=== PATIENT | female | born 1935 | race Caucasian/White ===

== ENCOUNTER 2017-01-04 14:17 | Inpatient (IN) | payer MEDICARE ==
[~2017-01-04] VITALS: Ht 157.5 cm; Wt 70.3 kg
[~2017-01-04 14:17] MED LIST: ASPIRIN81 MG PO; AUGMENTIN 875-1 EACH PO; B COMPLETE1 EACH PO; JANUVIA 100 MG100 MG PO; JANUVIA100 MG PO; LEVAQUIN250 MG PO; LISINOPRIL20 MG PO; MEDROL DOSEPAK 24 MG PO; NEURONTIN 100100 MG PO; NORVASC 5 MG TAB5 MG PO; PROAIR HFA8.5 GM INH; RANITIDINE HCL150 M1 PO; SIMVASTATIN10 MG PO; SYMBICORT 80-41 INHA INH
[2017-01-04 15:26] LABS: HEMOGLOBIN 11.4 gm/dl (12.3-15.3); RED BLOOD COUNT 4.14 M/UL (4.00-5.10); WHITE BLOOD COUNT 5.7 K/UL (4.5-11.0)
[2017-01-04] MEDS ORDERED: LISINOPRIL30 MG PO (20:59)
[2017-01-04] MEDS ORDERED: PROAIR HFA8.5 GM INH (21:02)
[2017-01-04] MEDS ORDERED: NEURONTIN 100100 MG PO (21:03)
[2017-01-05 03:54] LABS: HEMOGLOBIN 10.7 gm/dl (12.3-15.3); RED BLOOD COUNT 3.95 M/UL (4.00-5.10); WHITE BLOOD COUNT 4.9 K/UL (4.5-11.0)
[2017-01-05 04:10] LABS: BUN/CREATININE RATIO 18 (0-10)
[2017-01-06 10:55] LABS: URINE CALCIUM 3.9 mg/dL
[2017-01-06 10:57] LABS: URINE 24 HOUR CALCIUM 99.1 mg/24 (100-300)
[2017-01-06 21:11] LABS: BUN/CREATININE RATIO 18 (0-10)
[2017-01-07 05:35] LABS: HEMOGLOBIN 11.7 gm/dl (12.3-15.3); RED BLOOD COUNT 4.25 M/UL (4.00-5.10); WHITE BLOOD COUNT 4.3 K/UL (4.5-11.0)
[2017-01-07 06:03] LABS: BUN/CREATININE RATIO 19 (0-10)
[2017-01-07] MEDS ORDERED: KLOR-CON M2020 MEQ PO (17:45)
[2017-01-07] MEDS ORDERED: MAGOX 400400 MG PO (17:46)
[2017-01-07] MEDS ORDERED: CHOLESTYRAMINE P4 GM PO (17:58)
== END 2017-01-07 19:00 | disposition home or self-care (01) | DRG 392 ==
LOC: ER1 14:17 → ZEROF 17:23 → PROG CARE 17:23
PROVIDERS: Hospitalist; Internal Medicine Nephrology; Preventive Medicine Occupational Medicine; ADMIT Emergency Medicine
DX: K91.2 Postsurgical malabsorption, not elsewhere classified (principal); E83.42 Hypomagnesemia; E87.6 Hypokalemia; E83.51 Hypocalcemia; K52.89 Other specified noninfective gastroenteritis and colitis; D64.9 Anemia, unspecified; Y83.6 Removal of other organ (partial) (total) as the cause of abnormal reaction of the patient, or of later complication, without mention of misadventure at the time of the procedure; D69.6 Thrombocytopenia, unspecified; E87.8 Other disorders of electrolyte and fluid balance, not elsewhere classified; I10 Essential (primary) hypertension; E78.5 Hyperlipidemia, unspecified; E11.9 Type 2 diabetes mellitus without complications; J44.9 Chronic obstructive pulmonary disease, unspecified; Z85.43 Personal history of malignant neoplasm of ovary; Z85.42 Personal history of malignant neoplasm of other parts of uterus; Z85.038 Personal history of other malignant neoplasm of large intestine; Z87.891 Personal history of nicotine dependence; Z90.49 Acquired absence of other specified parts of digestive tract; Z90.710 Acquired absence of both cervix and uterus; Z90.721 Acquired absence of ovaries, unilateral; Z88.5 Allergy status to narcotic agent; Z88.2 Allergy status to sulfonamides; Z91.013 Allergy to seafood; Z80.8 Family history of malignant neoplasm of other organs or systems; Z82.49 Family history of ischemic heart disease and other diseases of the circulatory system
CPT/HCPCS: 36415; 71010; 80048; 80053; 81001; 82150; 82330; 82340; 82570; 82962; 83690; 83735; 83930; 83935; 83970; 84100; 84133; 84300; 85025; 85027; 93005; 96360; 99284; J3480; J7030

== ENCOUNTER → 2017-01-16 | Outpatient (CLI) | payer MEDICARE ==
[~2017-01-16] MED LIST changes: +CHOLESTYRAMINE P4 GM PO; +KLOR-CON M2020 MEQ PO; +LISINOPRIL30 MG PO; +MAGOX 400400 MG PO
== END ==
LOC: KOH-I 08:30
DX: N28.1 Cyst of kidney, acquired (principal)
CPT/HCPCS: 76775